=== PATIENT | female | born 1950 | race Caucasian/White ===

== ENCOUNTER 2017-01-10 08:06 | Outpatient (CLI) | payer SELFPAY ==
[2017-01-10 09:15] LABS: BASOPHILS % (AUTO) 1.2 %; EOSINOPHILS # (AUTO) 0.1 10^3/uL (0.0-0.7); EOSINOPHILS % (AUTO) 2.9 %; HCT - HEMATOCRIT 42.4 % (37.0-47.0); HGB - HEMOGLOBIN 14.3 g/dL (12.0-16.0); LYMPHOCYTES # (AUTO) 1.5 10^3/uL (1.5-3.5); LYMPHOCYTES % (AUTO) 37.4 %; MEAN CORPUSCULAR HEMOGLOBIN 28.7 pg (27.0-31.0); MEAN CORPUSCULAR HGB CONC 33.6 g/dL (32.0-36.0); MEAN CORPUSCULAR VOLUME 85.3 fL (81.0-99.0); MEAN PLATELET VOLUME 6.7 fL (7.9-10.8); MONOCYTES # (AUTO) 0.3 10^3/uL (0.0-1.0); MONOCYTES % (AUTO) 7.4 %; NEUTROPHILS # (AUTO) 2.1 10^3/uL (1.5-6.6); NEUTROPHILS % (AUTO) 51.1 %; NUCLEATED RED BLOOD CELLS AUTO 0.1 /100WBC; RED BLOOD COUNT 4.98 10^6/uL (4.20-5.40); RED CELL DISTRIBUTION WIDTH 12.8 % (12.0-15.0); UNCORRECTED WHITE BLOOD COUNT 4.1 x10^3/uL; WHITE BLOOD COUNT 4.1 x10^3/uL (4.8-10.8)
[2017-01-10 09:25] LABS: ALBUMIN/GLOBULIN RATIO 1.4 (1.0-2.2); BILIRUBIN,TOTAL 0.8 mg/dL (0.2-1.0); BUN - BLOOD UREA NITROGEN 15 mg/dL (6-20); CALCIUM 9.3 mg/dL (8.5-10.3); CARBON DIOXIDE - CO2 28 mmol/L (21-32); CHLORIDE 102 mmol/L (101-111); CHOL/HDL RATIO 3.2 (<4.4); CHOLESTEROL 226 mg/dL; CREATININE 0.8 mg/dL (0.4-1.0); GFR - MDRD 72 (>89); GLUCOSE 92 mg/dL (70-100); HDL CHOLESTEROL 71 mg/dL; LDL/HDL RATIO 1.9 (<4.4); POTASSIUM 3.9 mmol/L (3.5-5.0); SODIUM 138 mmol/L (135-145); TOTAL PROTEIN 7.3 g/dL (6.7-8.2); TRIGLYCERIDES 109 mg/dL; VLDL CHOLESTEROL 22 mg/dL
== END 2017-01-10 08:07 | disposition home or self-care (01) ==
LOC: LAB 08:06
PROVIDERS: ATTEND Internal Medicine
DX: E78.5 Hyperlipidemia, unspecified (principal); E55.9 Vitamin D deficiency, unspecified; I10 Essential (primary) hypertension
CPT/HCPCS: 36415; 80053; 80061; 82306; 85025

== ENCOUNTER 2017-05-19 13:56 | Outpatient (CLI) | payer SELFPAY ==
--- NOTE | 2017-05-19 15:34 | Ultrasound Report ---
LEFT BREAST ULTRASOUND: 05/19/2017 CLINICAL INDICATION: Localized pain, possible palpable abnormality. 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 FINDINGS: Ultrasound of the region of pain and possible palpable abnormality identified by the patient was performed. Unremarkable parenchymal lobules are seen. No discrete solid or cystic lesion is appreciated. No sonographically suspicious findings are seen. IMPRESSION: NEGATIVE EXAMINATION. RECOMMENDATION: ROUTINE ANNUAL SCREENING UNLESS OTHERWISE CLINICALLY INDICATED. BIRADS CATEGORY 1-NEGATIVE. TD: 05/19/2017 15:33 MTDD
--- NOTE | 2017-05-19 15:38 | Mammography Report ---
DIGITAL DIAGNOSTIC BILATERAL MAMMOGRAM: 05/19/2017 CLINICAL INDICATION: Left breast pain, possible palpable abnormality. COMPARISON: 07/04/2015, 09/02/2012, 07/10/2010, 01/13/2008, 01/07/2007. TECHNIQUE: Bilateral CC and MLO views, left true lateral view. Markers were placed at the site of maximal tenderness and possible palpable abnormality identified by the patient. FINDINGS: The breasts demonstrate scattered fibroglandular parenchyma bilaterally. Punctate, typically benign calcifications are present. No suspicious masses, clustered microcalcifications, or regions of architectural distortion are identified. Specifically, no mammographic abnormality is appreciated at the site of maximal tenderness and possible palpable abnormality identified by the patient. Please also refer to left breast ultrasound of the same day. IMPRESSION: BENIGN FINDINGS. RECOMMENDATION: ROUTINE ANNUAL SCREENING UNLESS OTHERWISE CLINICALLY INDICATED. BIRADS CATEGORY 2-BENIGN FINDINGS. STANDARD QUALIFYING STATEMENTS: 1. This examination was reviewed with the aid of Computer-Aided Detection (CAD). 2. A negative or benign imaging report should not delay biopsy if clinically suspicious findings are present. Consider surgical consultation if warranted. More than 5% of cancers are not identified by imaging. 3. Dense breasts may obscure an underlying neoplasm. TD: 05/19/2017 15:37
== END 2017-05-19 13:57 | disposition home or self-care (01) ==
LOC: DI 13:56
PROVIDERS: ATTEND Specialist
DX: N64.4 Mastodynia (principal)
CPT/HCPCS: 76642; 77066

== ENCOUNTER 2018-01-16 08:00 | Outpatient (CLI) | payer MEDICARE, OTHER ==
[2018-01-16 12:08] LABS: BASOPHILS % (AUTO) 0.4 %; EOSINOPHILS # (AUTO) 0.1 10^3/uL (0.0-0.7); EOSINOPHILS % (AUTO) 2.8 %; HGB - HEMOGLOBIN 13.7 g/dL (12.0-16.0); LYMPHOCYTES # (AUTO) 1.4 10^3/uL (1.5-3.5); LYMPHOCYTES % (AUTO) 31.9 %; MEAN CORPUSCULAR HEMOGLOBIN 29.2 pg (27.0-31.0); MEAN CORPUSCULAR HGB CONC 34.1 g/dL (32.0-36.0); MEAN CORPUSCULAR VOLUME 85.7 fL (81.0-99.0); MEAN PLATELET VOLUME 6.9 fL (7.9-10.8); MONOCYTES # (AUTO) 0.3 10^3/uL (0.0-1.0); MONOCYTES % (AUTO) 7.4 %; NEUTROPHILS # (AUTO) 2.5 10^3/uL (1.5-6.6); NEUTROPHILS % (AUTO) 57.5 %; PLT - PLATELET COUNT 254 10^3/uL (130-450); RED CELL DISTRIBUTION WIDTH 13.2 % (12.0-15.0); WHITE BLOOD COUNT 4.3 x10^3/uL (4.8-10.8)
[2018-01-16 12:16] LABS: ALBUMIN/GLOBULIN RATIO 1.4 (1.0-2.2); BILIRUBIN,TOTAL 0.8 mg/dL (0.2-1.0); CALCIUM 8.9 mg/dL (8.5-10.3); CREATININE 0.9 mg/dL (0.4-1.0); TOTAL PROTEIN 6.9 g/dL (6.7-8.2)
== END 2018-01-16 08:01 | disposition home or self-care (01) ==
LOC: LAB.R 08:00
PROVIDERS: ATTEND Internal Medicine
DX: R10.32 Left lower quadrant pain (principal)
CPT/HCPCS: 80053; 85025

== ENCOUNTER 2018-01-17 11:49 | Outpatient (CLI) | payer MEDICARE, OTHER ==
[2018-01-17] MEDS ORDERED: IOPAMIDOL-300 100 ML VIAL ONE (11:59)
[2018-01-17] MEDS ORDERED: IOPAMIDOL-300 50 ML VIAL ONE (11:59)
[2018-01-17] MEDS ORDERED: IOPAMIDOL-300 50 ML VIAL PO ONE (14:37)
[2018-01-17] MEDS ORDERED: IOPAMIDOL-300 100 ML VIAL IVP ONE (14:37)
--- NOTE | 2018-01-18 03:40 | CT Report ---
Reason: ABDOMINAL PAIN,LLQ Procedure Date: 01/17/2018 Accession Number: [id number] / [id number] Procedure: CT - Abdomen/Pelvis W/ CPT Code: FULL RESULT: EXAM: CT ABDOMEN AND PELVIS EXAM DATE: 01/17/2018 01:05 PM. CLINICAL HISTORY: Abdominal pain, left lower quadrant. COMPARISONS: None. TECHNIQUE: Routine helical CT imaging was performed through the abdomen and pelvis. IV contrast: ISOVUE 300 100mL. Enteric contrast: Yes. Reconstructions: Coronal and sagittal. In accordance with CT protocol optimization, one or more of the following dose reduction techniques were utilized for this exam: automated exposure control, adjustment of mA and/or KV based on patient size, or use of iterative reconstructive technique. FINDINGS: Lung Bases: Unremarkable. Liver: Unremarkable. No suspicious masses. Gallbladder/Bile Ducts: Unremarkable. Spleen: Unremarkable. Pancreas: Unremarkable. Adrenal Glands: Unremarkable. Kidneys: Malrotated left kidney. No suspicious masses or hydronephrosis. Peritoneal Cavity/Bowel: Large gastric fundal diverticulum. Severe colonic diverticulosis. No bowel obstruction or inflammatory process seen. No free air or significant free fluid. No masses or adenopathy. The appendix is not seen but there is no evidence of appendicitis. No excessive stool burden. Pelvic Organs: Endometrium possibly thickened at 12 mm on image 40 series 6. Internal mass not excluded. No myometrial or adnexal mass seen. Urinary bladder appears unremarkable. Vasculature: No aneurysms or other significant abnormality. Bones: No aggressive appearing or acute abnormality. Grade 1 anterolisthesis of L5 on S1 may be related to degenerative changes. Other: None. IMPRESSION: 1. Severe colonic diverticulosis without definitive diverticulitis seen. 2. No acute inflammatory or obstructive process seen in the abdomen or pelvis. 3. Large gastric fundal diverticulum. 4. Endometrial appears abnormally thickened at up to 12 mm in a postmenopausal patient. Sonographic followup suggested to exclude endometrial mass/polyp. RADIA
== END 2018-01-17 11:50 | disposition home or self-care (01) ==
LOC: DI 11:49
PROVIDERS: ATTEND Internal Medicine
DX: R10.32 Left lower quadrant pain (principal); K57.30 Diverticulosis of large intestine without perforation or abscess without bleeding; K31.4 Gastric diverticulum; R93.89 Abnormal findings on diagnostic imaging of other specified body structures
CPT/HCPCS: 74177; Q9967

== ENCOUNTER 2018-01-21 18:58 | Outpatient (CLI) | payer MEDICARE, OTHER ==
--- NOTE | 2018-01-22 09:42 | Ultrasound Report ---
Reason: ABDOMINAL PAIN,LLQ Procedure Date: 01/21/2018 Accession Number: [id number] / [id number] Procedure: US - Pelvic w/Transvaginal CPT Code: FULL RESULT: EXAM: PELVIC ULTRASOUND EXAM DATE: 01/21/2018 07:07 PM. CLINICAL HISTORY: Left lower quadrant pain. COMPARISON: None. TECHNIQUE: Realtime transabdominal pelvic scan performed to identify the uterus and adnexa and as an overview of other pelvic structures, followed by transvaginal scan to provide greater detail of the uterus and adnexa, with static image documentation. FINDINGS: Uterus: 6.8 x 3.6 x 4.1 cm, volume 51 cc. Retroverted position. Normal overall size and echotexture. Masses: None. Endometrium: 13 mm. Heterogeneous appearance including a few small endometrial cysts measuring up to 8 mm are seen. No abnormal vascularity. Cervix: Unremarkable. Right Ovary: 2.0 x 1.3 x 1.1 cm, volume 1.5 cc. Normal echotexture and blood flow. Left Ovary: 0.9 x 0.6 x 0.3 cm, volume less than 1 cc. Normal echotexture and blood flow. Free Fluid: None. Other: None. IMPRESSION: 1. Thickened and partially cystic-appearing endometrium measuring up to 13 mm. Differential considerations include endometrial hyperplasia versus malignancy. Recommend further evaluation with tissue sampling. 2. Normal postmenopausal-appearing ovaries. RADIA
== END 2018-01-21 18:59 | disposition home or self-care (01) ==
LOC: DI 18:58
PROVIDERS: ATTEND Internal Medicine
DX: R10.32 Left lower quadrant pain (principal); R93.89 Abnormal findings on diagnostic imaging of other specified body structures
CPT/HCPCS: 76830; 76856

== ENCOUNTER 2018-12-24 07:55 | Outpatient (CLI) | payer MEDICARE, OTHER ==
[2018-12-24 08:36] LABS: BASOPHILS # (AUTO) 0.1 10^3/uL (0.0-0.1); BASOPHILS % (AUTO) 1.1 %; EOSINOPHILS # (AUTO) 0.2 10^3/uL (0.0-0.7); EOSINOPHILS % (AUTO) 3.7 %; HGB - HEMOGLOBIN 13.5 g/dL (12.0-16.0); LYMPHOCYTES # (AUTO) 1.7 10^3/uL (1.5-3.5); LYMPHOCYTES % (AUTO) 38.9 %; MEAN CORPUSCULAR HEMOGLOBIN 28.8 pg (27.0-31.0); MEAN CORPUSCULAR HGB CONC 32.8 g/dL (32.0-36.0); MEAN CORPUSCULAR VOLUME 87.8 fL (81.0-99.0); MEAN PLATELET VOLUME 8.3 fL (7.9-10.8); MONOCYTES # (AUTO) 0.4 10^3/uL (0.0-1.0); MONOCYTES % (AUTO) 8.2 %; NEUTROPHILS # (AUTO) 2.1 10^3/uL (1.5-6.6); NEUTROPHILS % (AUTO) 47.4 %; PLT - PLATELET COUNT 220 10^3/uL (130-450); RED BLOOD COUNT 4.68 10^6/uL (4.20-5.40); RED CELL DISTRIBUTION WIDTH 12.5 % (12.0-15.0); WHITE BLOOD COUNT 4.4 x10^3/uL (4.8-10.8)
[2018-12-24 08:41] LABS: ALBUMIN 3.8 g/dL (3.2-5.5); ALBUMIN/GLOBULIN RATIO 1.3 (1.0-2.2); ALKALINE PHOSPHATASE 47 IU/L (42-121); ALT ALANINE AMINOTRANSFERASE 15 IU/L (10-60); AST ASPARTATE AMINOTRANSFERASE 16 IU/L (10-42); BILIRUBIN,TOTAL 0.6 mg/dL (0.2-1.0); BUN - BLOOD UREA NITROGEN 21 mg/dL (6-20); CALCIUM 8.8 mg/dL (8.5-10.3); CARBON DIOXIDE - CO2 29 mmol/L (21-32); CHLORIDE 105 mmol/L (101-111); CHOL/HDL RATIO 3.2 (<4.4); CHOLESTEROL 231 mg/dL; CREATININE 0.8 mg/dL (0.4-1.0); GFR - MDRD 72 (>89); GLUCOSE 92 mg/dL (70-100); HDL CHOLESTEROL 72 mg/dL; LDL CHOLESTEROL,CALCULATED 144 mg/dL; SODIUM 140 mmol/L (135-145); TOTAL PROTEIN 6.8 g/dL (6.7-8.2); VLDL CHOLESTEROL 15 mg/dL
== END 2018-12-24 07:56 | disposition home or self-care (01) ==
LOC: LAB 07:55
PROVIDERS: ATTEND Nurse Practitioner
DX: I10 Essential (primary) hypertension (principal); E78.5 Hyperlipidemia, unspecified; E55.9 Vitamin D deficiency, unspecified; R05 Cough; R53.83 Other fatigue
CPT/HCPCS: 36415; 80053; 80061; 81599; 83721; 84443; 85025; 86480

== ENCOUNTER 2019-03-01 08:17 | Outpatient (CLI) | payer MEDICARE, OTHER ==
[2019-03-01 09:26] VITALS: BP 144/77
--- NOTE | 2019-03-01 09:26 | SLEEP CARE CONSULTATION ---
Information from patient questionnaire entered by Tiki Rob. I have reviewed and concur with the information entered by Tiki Rob. This document represents the service I personally performed and the decisions made by me, Claudette Gamez RN, MSN, BACK SEWER. History of Present Illness Reason for Visit: New patient Accompanied by: Spouse Chief Complaint: reports: Unrefreshed sleep, Snoring, Observed pauses in breathing, Fatigue (sometimes), Frequent awakenings at night Duration of Symptoms: 2-3 years Usual bedtime: [id number] Time it takes to fall asleep: 10-15 minutes Snores at night: Yes Observed to quit breathing while asleep: Yes Sleeps alone due to snoring: No Number of times waking at night: 3 Reasons for waking at night: reports: Bathroom, Other (unknown reasons) Toss, Turn, or Twitch while sleeping: Yes Recalls having dreams: Yes Usually gets out of bed at: [id number] Feels refreshed in the morning: No (sometimes feels refreshed ) Morning headache: Yes (few times a month that seems to be associated with sinus congestion) Sleepy or fatigued during the day: Yes Ever fallen asleep while driving: No Takes day naps: Yes (not every day - generally 15-30 minutes a couple times a week) Dreams during day naps: No Prior sleep studies: No - Parasomnia Symptoms Ever been unable to move upon waking from sleep: No Walks in sleep: No Talks in sleep: No Ever acted out dreams in sleep: No Ever felt weak in the knees when startled or emotional: Yes (rare occasions) Bothered by creepy, crawly, restless sensations in legs: No Problems with memory or concentration: No Subjective Initial [place] Sleepiness Scale score: 12 Past Medical History Past Medical History: reports: Hypertension Social History The patient's occupation is retired. Patient is and lives in [place]. Have you smoked in the past 12 months: No Alcohol use: Yes Alcohol amount and frequency: occasionally with meals or in evenings: glass of wine Caffeine use: Yes Caffeine amount and frequency: 2-3 cups of coffee a day. Family History Family history of sleep disordered breathing: Yes Family Hx Sleep Apnea: Father: Snoring, Sibling: Snoring, Sleep apnea - Treated Allergies and Home Medications Known drug allergies: Yes (tetracycline) Home medication list reviewed: Yes Allergy and home medication list: losartan 25mg daily vitamin 1000 units daily Review of Systems Cardiovascular: reports: high blood pressure Respiratory: reports: other (always feel congested - sinus) Neurological: reports: headaches Ear/Nose/Throat: reports: sinus problems, dry mouth/throat (when she awakens), hoarseness (when awakens ), wisdom teeth removed Musculoskeletal: reports: joint pain (hands ) Physical Exam Blood Pressure: 144/77 Cuff size: regular Heart Rate: 77 O2 Saturation: 98 Height: 5 ft 7 in Weight: 148 lb 3.2 oz Body Mass Index: 23.2 BMI Classification: Healthy weight Neck circumference: 13 HEENT: No craniofacial malformation Nostrils: patent to airflow Turbinates: boggy Septum: midline Mouth and throat: narrow oropharynx Soft palate: long Hard palate: normal Uvula: long Uvula visualization: 25% Mallampati Class III Tongue: normal in size Tonsils: small Chin and jaw: Overjet Neck: normal w/o lymphadenopathy or thyromegaly Heart: regular rate and rhythm Lungs: clear bilaterally Abdomen: soft, non-tender Extremities: no edema or clubbing Neurologic: intact Impression and Plan 1. Suspected Obstructive Sleep Apnea-Hypopnea Syndrome, as suggested by a history of loud and irregular snoring, observed cessation of breath while asleep, frequent awakening during the night, unrefreshed sleep, and excessive daytime sleepiness. Narrow oropharynx and obesity are common predisposing factors for obstructive sleep apnea-hypopnea syndrome. Her overjet can also in crease her risk of apnea. I recommend proceeding to polysomnography to confirm the diagnosis and to assess severity. If the patient has significant sleep disordered breathing, a manual CPAP titration study will also be performed to find the optimal treatment pressure. I informed the patient of what the sleep studies involve and after some discussion, obtained agreement to proceed. The pathophysiology of obstructive sleep apnea-hypopnea syndrome was discussed with the patient and health risks of cardiovascular and cerebrovascular disease if not treated. AASM brochure for obstructive sleep apnea-hypopnea syndrome given and reviewed. Risks of drowsy driving discussed in detail and patient advised to avoid long distance driving and to bleach boiler puller at the first sign of drowsiness. Patient agreed to plan. Patient had several questions about sleep study process, diagnosis and apnea treatment options and follow up that were answered. * Schedule polysomnography +- manual CPAP titration study * Avoid alcohol, sedative and muscle relaxant around bedtime. * Attempt to lose weight. * Review instructions provided by trained office staff on how to prepare for the sleep study. * Return for follow-up after sleep study completed. I spent 100% of this 40 minute visit face to face with the patient with greater than 50% of this was spent time counseling the patient and coordination of care and answering questions about apnea, sleep study and treatment options .
== END 2019-03-01 08:18 | disposition home or self-care (01) ==
LOC: SC 08:17
PROVIDERS: ATTEND Nurse Practitioner Family
DX: G47.10 Hypersomnia, unspecified (principal); R06.81 Apnea, not elsewhere classified; G47.8 Other sleep disorders; R06.83 Snoring
CPT/HCPCS: 99204; G0463; 99212

== ENCOUNTER 2019-03-17 19:36 | Outpatient (CLI) | payer MEDICARE, OTHER | END 2019-03-17 19:37 | disposition home or self-care (01) | LOC: SC 19:36 | PROVIDERS: ATTEND Internal Medicine Pulmonary Disease | DX: G47.33 Obstructive sleep apnea (adult) (pediatric) (principal) | CPT/HCPCS: 95810 ==

== ENCOUNTER 2019-05-04 08:40 | Outpatient (CLI) | payer MEDICARE, OTHER ==
--- NOTE | 2019-05-04 09:37 | SLEEP CARE CONSULTATION ---
Information from patient questionnaire entered by Brittany Paredes. I have reviewed and concur with the information entered by Brittany Paredes. This document represents the service I personally performed and the decisions made by me, Claudette Gamez, RN, MSN, PATTERNMAKER APPRENTICE WOOD. History of Present Illness Accompanied by: Spouse Initial [place] Sleepiness Scale score: 12 Current [place] Sleepiness Scale score: 8 Additional HPI information: QUAN YOUNG returns with spouse for follow up and results of the recently performed polysomnography. I explained the pathophysiology behind obstructive sleep apnea. We then spent quite a bit of time discussing different treatment options. For mild obstructive sleep apnea, surgery and oral appliance are alternatives to nasal CPAP therapy but in moderate or severe cases, nasal CPAP is the most effective and reliable treatment. I reviewed the impact of weight changes on sleep apnea and strongly recommended losing weight. After some discussion, the patient opted to go with the nasal CPAP therapy. I d iscussed having a manual titration study to initiate therapy and find optimal treatment pressure and starting an autoCPAP and follow up process. With further discussion, the patient chose to start nasal autoCPAP set at [id number]. A manual titration study will be ordered if unable to find optimal pressure with office adjustments. I explained how CPAP machine works with sample devices RespireIQ Energys Dreamstation and ResMINDBODY [id number] and what to expect when using the machine. Using CPAP every night in order to get used to it was emphasized. Patient advised to put CPAP mask on before getting into bed so as not to fall asleep without CPAP. To assist acclimation to CPAP use, it could also be used for a short time during day while reading or watching TV. The patient was instructed to call the CPAP supplier to discuss any mechanical problem that may occur. If the mask given is uncomfortable or is difficult to keep on through the night even with adjustment, contact the CPAP supplier as many will replace with another mask style if notified before 30 days. If snoring or perceives is not getting enough air or too much air from the machine, notify this office. AAS patient education PAP tips reviewed and given to patient. Dreamstation CPAP preferred. Patient counseled not drink alcohol less than 4 hours before bedtime as it can increase snoring and apnea. Patient was cautioned about risks of drowsy driving until sleepiness symptoms resolve. Patient denies drowsy driving. AAS patient education on snoring and sleep apnea given and reviewed at last visit . Sleep Study - Results Polysomnography/Home Sleep Study results: The quality of the study is good. The patient had slightly reduced sleep efficiency due to a prolonged awakening in the first half of the study. Despite moderate sleep fragmentation,, the sleep architecture was normal. Respiratory monitoring showed moderate obstructive sleep apnea-hypopnea (AHI = 25.3) associated with frequent arousals, oxyhemoglobin desaturation and mild hypoxia ([place] oxygen saturation of 81%). The respiratory events occurred independently of sleep stage and body position (supine AHI = 34.1; non-supine = 23.86). Snore was loud in intensity. There was no significant periodic leg movement of sleep. Cardiac rhythm was normal sinus rhythm with occasional pr emature ventricular contractions. No abnormal behavior (parasomnia) observed during the night. Allergies and Home Medications Known drug allergies: No Home medication list reviewed: Yes (no changes ) Review of Systems Review of systems same as previous: Yes Physical Exam Blood Pressure: 130/78 Cuff size: regular Heart Rate: 70 O2 Saturation: 98 Height: 5 ft 7 in Weight: 149 lb Weight change since last visit: 1 pound Body Mass Index: 23.3 BMI Classification: Healthy weight Impression and Plan 1. Obstructive Sleep Apnea-Hypopnea Syndrome, moderate , with lowest oxygen saturation of 81%. Obviously this is the cause of the patients symptoms of unrefreshed sleep, and excessive daytime sleepiness. Positive pressure therapy could benefit her hypertension. As mentioned above, the patient will be started on nasal autoCPAP therapy with pressure set at 4-15 cmH2O. A manual titration study will be completed if unable to find optimal treatment pressure with office adjustments. Compliance guidelines also reviewed. A copy of compliance guidelines will be given for reference at check out. Because the apnea is more severe supine, I instructed to avoid sleeping supine using pillow positioning until able to start CPAP use. Patient prefers nasal mask and Dreamstation CPAP which will be placed on her order. 2. Arrhythmia, occasional premature ventricular contractions noted on sleep study. She is advised that if not noted before in her history to follow up with PCP to see if further evaluation as indicated. * Nasal auto CPAP therapy, pressure at 4-15 cm H2O. * Follow up with PCP re arrhythmia as indicated. * Avoid alcohol consumption near bedtime. * Avoid supine sleep until using CPAP. * The patient is again cautioned about driving until sleepiness completely resolves. * Return one month after CPAP obtained. I will assess response to therapy and compliance at that time. Time Spent with Patient (minutes): 37 I spent 100% of this visit face to face with the patient with greater than 50% of this was spent time counseling the patient and coordination of care.
[2019-05-04 09:38] VITALS: BP 130/78
== END 2019-05-04 08:41 ==
LOC: SC 08:40
PROVIDERS: ATTEND Nurse Practitioner Family
DX: G47.33 Obstructive sleep apnea (adult) (pediatric) (principal); I49.9 Cardiac arrhythmia, unspecified
CPT/HCPCS: 99214; G0463; 99212

== ENCOUNTER 2019-09-06 09:20 | Outpatient (CLI) | payer MEDICARE, OTHER ==
[2019-09-06 10:09] VITALS: BP 134/90
--- NOTE | 2019-09-06 10:09 | SLEEP CARE CONSULTATION ---
Information from patient questionnaire entered by Brittany Paredes. I have reviewed and concur with the information entered by Brittany Paredes. This document represents the service I personally performed and the decisions made by me, Claudette Gamez, RN, MSN, PICKING TECH. History of Present Illness Service Date and Time: 09/06/2019919 Previous diagnosis: Moderate, Obstructive Sleep Apnea-Hypopnea Syndrome AHI: 25.3 (in 2019) Reason for follow up: first compliance Equipment type: CPAP Equipment obtained from: [facility] (getting supplies as needed) Mask style: Nasal (Dreamwear nasal mask) Backup mask available: No (keep current mask when replaced) Last cushion change: a week ago / changes every two weeks / cleans daily Prior sleep studies: Yes Year and Where: 2019 - [facility] Type of Sleep Study: Polysomnography CPAP Compliance Data - Data Reviewed with Patient Average duration of nightly device use: 6.5 Compliance rate %: 100 Current pressure setting (cmH2O): 4-15 Humidity settin Heated hose settin Average residual AHI: 8.5 (9.2cmH20 90% average ) Central apnea: 3.4 Obstructive apnea: 0.7 Hypopnea: 4.5 Average large leak: 8 min 50 sec Subjective Patient concerns: reports: aerophagia (once only in the beginning ), air blowing in eyes (3 times a night and wakes to adjust mask /when she is sleeping on her side ), nasal congestion (wakes clear in morning after CPAP and is nasal congestion shortly thereafter), other (wakes to rhythm of breathing - used to very quiet sleep environment). denies: mask discomfort, mask leak noise (not after mask adjustment), condensation in mask/hose, dry mouth, nose, throat, epistaxis Observed to snore while using device: No Current pressure setting perceived as: comfortable On therapy, patient: reports: awakening more refreshed (oocasionally ), being more awake and alert during the day, more rested overall (her increase in energy is intermittent). denies: sleeping better, drowsiness while driving Initial [place] Sleepiness Scale score: 12 (in 2019) Current [place] Sleepiness Scale score: 6 Allergies and Home Medications Home medication list reviewed: No (no changes) Review of Systems Review of systems same as previous: Yes Physical Exam Blood Pressure: 134/90 Cuff size: regular Heart Rate: 72 O2 Saturation: 99 Height: 5 ft 7 in Weight: 153 lb 12.8 oz Body Mass Index: 24.0 BMI Classification: Healthy weight Impression and Plan 1. Obstructive Sleep Apnea-Hypopnea Syndrome, moderate, with good treatment compliance and mild elevation AHI. On CPAP therapy, the patient is intermittently more rested overall. The patients pressure will be changed to autoCPAP 9-12 cmH20 For elevation of residual AHI. Patient advised to contact me if pressure change is uncomfortable so that it can be adjusted. Goals for apnea control discussed. Mask leaks predominately from when patient sleeps on their side can be reduced by using a CPAP pillow. Several styles can be purchased online. To diffuse noise of breathing, a fan or white noise device of some sort can be used . Patient's apnea severity and rationale for treatment to reduce apnea, improve sleep quality and reduce cardiovascular and cerebrovascular events was reviewed. I also reviewed the benefit of consistent device use of CPAP for hypertension. * Changeauto CPAP pressure to 9-15 cmH2O * Notify me if snoring with mask or feeling that the pressure is too much or too little * Consider CPAP pillow * Consider white noise * Call this office if any problems using CPAP * Return for follow up in 1-2 months , or sooner if concerns arise
== END 2019-09-06 09:21 | disposition home or self-care (01) ==
LOC: SC 09:20
PROVIDERS: ATTEND Nurse Practitioner Family
DX: G47.33 Obstructive sleep apnea (adult) (pediatric) (principal)
CPT/HCPCS: 99214; G0463; 99212

== ENCOUNTER 2020-01-10 16:28 | Outpatient (CLI) | payer MEDICARE, OTHER ==
[2020-01-11 11:01] VITALS: BP 130/100
--- NOTE | 2020-01-11 11:01 | SLEEP CARE CONSULTATION ---
Information from patient questionnaire entered by Tiki Rob. I have reviewed and concur with the information entered by Tiki Rob. This document represents the service I personally performed and the decisions made by me, Claudette Gamez, RN, MSN, EXPORT SPECIALIST. History of Present Illness Service Date and Time: 01/10/2020 1628 Previous diagnosis: Moderate, Obstructive Sleep Apnea-Hypopnea Syndrome AHI: 25.3 (in 2019) Reason for follow up: other (2 month with pressure change) Equipment type: CPAP Equipment obtained from: [facility] (g) Mask style: Nasal Backup mask available: No (Keep current mask when replaced as a spare ) Last cushion change: 2 weeks ago Prior sleep studies: Yes Year and Where: 2018 - [facility] Type of Sleep Study: Polysomnography HPI additional information: Patient was unable to tolerate the 8-12 cmH20 pressure ordered for elevated residual AHI of 7.2. She called clinic and the pressure was reduced to [id number] by Chantal GRIFFITH. Since then the pressure has been comfortable. The mask leaks are less on this pressure. She did not get a CPAP pillow but researched. She instead found a different pillow at home that can be molded into a better shape to fit her mask. She continues to take off mask the last part of morning ( 30-45minutes) for cuddle time with spouse and will sometimes doze without her CPAP. Sleep Study - Results Prior sleep studies: Yes Year and Where: 2018 - [facility] CPAP Compliance Data - Data Reviewed with Patient Average duration of nightly device use: 6 hours 25 minutes Compliance rate %: 90 Current pressure setting (cmH2O): 6-10 Humidity settin Heated hose settin Average residual AHI: 6.2 Average large leak: 2 minutes 4 secones Subjective Patient concerns: reports: mask discomfort (headgear straps are uncomfortable around ears and can irritate the), air blowing in eyes, mask leak noise (3 times a week). denies: aerophagia (resolved), condensation in mask/hose, nasal congestion, dry mouth, nose, throat, epistaxis, other Observed to snore while using device: No Current pressure setting perceived as: comfortable On therapy, patient: reports: sleeping better, awakening more refreshed, being more awake and alert during the day, more rested overall. 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 Obstructive Sleep Apnea-Hypopnea Syndrome, moderate, with good treatment compliance and elevated residual AHI. On CPAP therapy, the patient has better sleep quality and is more rested overall. The CPAP pressure was change at her last visit for elevated residual AHI of 7.2 but she was unable to tolerate the pressure so it was reduced to [id number]. There was an internet outage at the time of her visit so the current compliance data could not be viewed. When available, I will review and contact patient with any change in plans. She is also having mask discomfort causing intermittent irritation of skin around ears from headgear of present mask. She likes this style of mask so I showed her other similar styles. She agreed to a mask refitting and an order was written. She is to contact her DME to schedule mask refitting and stop shipment of old mask style. Until then I advised her to place a cloth barrier at site of mask bothering her. Patient's apnea severity and rationale for treatment to reduce apnea, improve sleep quality and reduce cardiovascular and cerebrovascular events was reviewed. I also reviewed the benefit of consistent device use of CPAP for hypertension.I again reviewed the importance of using CPAP with all sleep. In addition, because patient has significant apnea in all positions of sleep, if unable to use CPAP due to illness of lack of electricity, patient advised to raise head of bed 30-40 degrees to decrease some apnea risk. 2. Elevated Blood pressure this visit. The patient was advised to retake at home and contact PCP if elevated above guidelines given by her PCP. 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 * Continue auto CPAP pressure at 6-10 cmH2O * mask refitting * Notify me if snoring with mask or feeling that the pressure is too much or too little * Call this office if any problems using CPAP * Return for follow up in determined by compliance , or sooner if concerns arise * Addendum: 01-10-14 compliance received and shows an elevated residual AHI but at 6.2 now which is lower. Due to discomfort of higher pressure range I will not change the CPAP pressure further. This visit note could not be entered into EMR until internet outage resolved. Her next follow up is 6 months. Visit Type: In Office Time Spent with Patient (minutes): 30 Provider Statement: I spent 100% of the Face to Face Visit with the patient with greater than 50% spent counseling the patient and coordination of care.
== END 2020-01-10 16:29 | disposition home or self-care (01) ==
LOC: SC 16:28
PROVIDERS: ATTEND Nurse Practitioner Family
DX: G47.33 Obstructive sleep apnea (adult) (pediatric) (principal); R03.0 Elevated blood-pressure reading, without diagnosis of hypertension
CPT/HCPCS: 99214; G0463; 99212

== ENCOUNTER 2020-01-14 14:51 | Outpatient (CLI) | payer SELFPAY | END 2020-01-14 14:52 | disposition home or self-care (01) | LOC: COV 14:51 | PROVIDERS: ATTEND Family Medicine | DX: Z20.828 Contact with and (suspected) exposure to other viral communicable diseases (principal) ==

== ENCOUNTER 2020-05-11 06:25 | Day surgery (SDC) | payer MEDICARE, OTHER ==
[2020-05-11] MEDS ORDERED: LACTATED RINGERS 1,000 ML IV ONE ×2 (07:03→08:16)
[2020-05-11] MEDS ORDERED: MIDAZOLAM 2 MG/2 ML VIAL ONE ×3 (07:58→08:14)
[2020-05-11] MEDS ORDERED: fentaNYL 250 MCG/5 ML VIAL ONE (07:58)
[2020-05-11 08:43] VITALS: BP 104/54
== END 2020-05-11 06:26 | disposition home or self-care (01) ==
LOC: SDS 06:25
PROVIDERS: ATTEND Surgery
DX: Z12.11 Encounter for screening for malignant neoplasm of colon (principal); K57.30 Diverticulosis of large intestine without perforation or abscess without bleeding; I10 Essential (primary) hypertension; G47.33 Obstructive sleep apnea (adult) (pediatric); E78.5 Hyperlipidemia, unspecified; E55.9 Vitamin D deficiency, unspecified
CPT/HCPCS: G0121; J3010; J7120

== ENCOUNTER 2020-05-23 08:58 | Outpatient (CLI) | payer MEDICARE, OTHER ==
--- NOTE | 2020-05-23 16:44 | XRAY Report ---
PROCEDURE: Knee 4 View LT INDICATIONS: L KNEE JOINT PX TECHNIQUE: 4 views of the left knee(s) were acquired. COMPARISON: None FINDINGS: Bones: No acute fractures or dislocations. No suspicious bony lesions. Mild-moderate tricompartment al degenerative changes of the left knee. No significant joint space loss on weightbearing views. Soft tissues: No substantial joint effusion. No suspicious soft tissue calcifications. IMPRESSION: Left knee without acute fracture or malalignment. Mild-moderate tricompartmental osteoarthrosis of the left knee. Reviewed by: Julio Guy MD on 05/23/2020 4:42 PM PST Approved by: Julio Guy MD on 05/23/2020 4:42 PM PST Station ID: [id number]
== END 2020-05-23 08:59 | disposition home or self-care (01) ==
LOC: DI.N 08:58
PROVIDERS: ATTEND Family Medicine
DX: M25.562 Pain in left knee (principal); M17.12 Unilateral primary osteoarthritis, left knee

== ENCOUNTER 2020-06-07 14:41 | Outpatient (CLI) | payer MEDICARE, OTHER ==
--- NOTE | 2020-06-07 16:48 | DEXA Report ---
PROCEDURE: Dexa Spine and/or Hip INDICATIONS: POSTMENOPAUSAL TECHNIQUE: Dual energy x-ray absorptiometry (DXA) was performed on a [employer] System. Regions measur ed are the AP Spine, femoral neck, and if needed forearm. COMPARISON: None. FINDINGS: Lumbar Spine: Bone Mineral Density 1.003 g/cm/cm,T score -1.5, mild osteopenia Left Hip: Bone Mineral Density 0.804 g/cm/cm,T score -1.6, mild osteopenia Left Femoral Neck: Bone Mineral Density 0.775 g/cm/cm, T score -1.9, moderate to severe osteopenia (T score greater or equal to -1.0: NORMAL) (T score from -1.1 to -2.4: OSTEOPENIA) (T score less than or equal to -2.5 to: OSTEOPOROSIS) Impression: Osteopenia most severe in the left femoral neck. Patients with diagnosis of osteoporosis or osteopenia should have regular bone mineral density assess ment. For those eligible for Medicare, routine testing is allowed once every 2 years. Testing frequ ency can be increased for patients who have rapidly progressing disease or for those who are receivin g medical therapy to restore bone mass. Reviewed by: Kay Arguello MD on 06/07/2020 4:47 PM PST Approved by: Kay Arguello MD on 06/07/2020 4:47 PM PST Station ID: [id number]
== END 2020-06-07 14:42 | disposition home or self-care (01) ==
LOC: DI 14:41
PROVIDERS: ATTEND Nurse Practitioner
DX: M85.88 Other specified disorders of bone density and structure, other site (principal); Z78.0 Asymptomatic menopausal state

== ENCOUNTER 2020-06-07 14:43 | Outpatient (CLI) | payer MEDICARE, OTHER ==
--- NOTE | 2020-06-08 13:24 | Mammography Report ---
BILATERAL DIGITAL SCREENING MAMMOGRAM 3D/2D: 06/07/2020 CLINICAL: Routine screening. Comparison is made to exams dated: 05/19/2017 mammogram, 05/19/2017 ultrasound, 07/10/2010 mammogram, mammogram, and 07/04/2015 mammogram - [facility]. The tissue of both breasts is predominantly fatty. No significant masses, calcifications, or other findings are seen in either breast. There has been no significant interval change. IMPRESSION: NEGATIVE There is no mammographic evidence of malignancy. A 1 year screening mammogram is recommended. This exam was interpreted at Station ID: [id number]. NOTE: For mammograms, a report in lay terms will be sent to the patient. Approximately 15% of breast malignancies will not be visualized mammographically. In the management of a palpable breast mass, a negative mammogram must not discourage biopsy of a clinically suspicious lesion. Electronically Signed By: Ray Juan M.D., jr/penrad:06/07/2020 15:35:00 ACR BI-RADS Category 1: Negative 3341F PARENCHYMAL PATTERN: (F) - The breast(s) demonstrate(s) diffuse fatty replacement. BI-RADS CATEGORY: (1) - 1 RECOMMENDATION: (ANNUAL) - Recommend routine annual screening mammography. [id number] 1 year screening LATERALITY: (B)
== END 2020-06-07 14:44 | disposition home or self-care (01) ==
LOC: DI 14:43
PROVIDERS: ATTEND Nurse Practitioner
DX: Z12.31 Encounter for screening mammogram for malignant neoplasm of breast (principal)

== ENCOUNTER 2020-08-01 08:20 | Outpatient (CLI) | payer MEDICARE, OTHER ==
--- NOTE | 2020-08-01 08:54 | SLEEP CARE CONSULTATION ---
Information from patient questionnaire entered by Brittany Paredes. I have reviewed and concur with the information entered by Brittany Paredes. This document represents the service I personally performed and the decisions made by , Chantal Kaufman ARNP. History of Present Illness Service Date and Time: 08/01/2020 0820 Previous diagnosis: Moderate, Obstructive Sleep Apnea-Hypopnea Syndrome AHI: 25.3 (in 2019) Reason for follow up: other (6 month) Equipment type: CPAP Equipment obtained from: [facility] (getting supplies as needed) Mask style: Nasal Backup mask available: Yes (old mask) Last cushion change: 2 weeks ago Prior sleep studies: Yes Year and Where: 2019 - [facility] Type of Sleep Study: Polysomnography HPI additional information: QUAN YOUNG was diagnosed to have moderate, AHI 25.3, obstructive sleep apnea-hypopnea syndrome and returned today for CPAP therapy six month follow-up. CPAP Compliance Data - Data Reviewed with Patient Average duration of nightly device use: 6 hr 51 min Compliance rate %: 82.2 (180 days) Current pressure setting (cmH2O): 6-10 (mean 7.4, avg 8.8, peak 10.0) Humidity settin Heated hose settin Average residual AHI: 9.3 Central apnea: 3.5 Obstructive apnea: 0.6 Hypopnea: 5.2 Average large leak: 13 min 26 sec Subjective Missed days of use due to: reports: travel Patient concerns: reports: mask leak noise (improved with adjustment). denies: aerophagia, mask discomfort, air blowing in eyes, condensation in mask/hose, nasal congestion, dry mouth, nose, throat, epistaxis, other Observed to snore while using device: No Current pressure setting perceived as: comfortable On therapy, patient: reports: sleeping better, awakening more refreshed, being more awake and alert during the day, more rested overall. denies: drowsiness while driving Initial [place] Sleepiness Scale score: 12 (in 2019) Current [place] Sleepiness Scale score: 6 Allergies and Home Medications Home medication list reviewed: Yes (Vit D increased, Calcium) Allergy and home medication list: Losartan Review of Systems Review of systems same as previous: Yes (no changes) Physical Exam Heart Rate: 67 O2 Saturation: 100 Height: 5 ft 7 in Weight: 152 lb Body Mass Index: 23.8 BMI Classification: Healthy weight Impression and Plan 1. Obstructive Sleep Apnea-Hypopnea Syndrome, moderate, with good treatment compliance and fair apnea control with mildly elevated residual AHI. On CPAP therapy, the patient has better sleep quality and is more rested overall. She has more energy the next day. Patient has significant improvement of her sleep apnea and is satisfied with current treatment. She states the pressure setting is comfortable and would like to keep it at the 6-10 cmH2O despite the mild elevation. Patient advised to contact me if pressure becomes uncomfortable so that it can be adjusted. Goals for apnea control discussed. Patient voiced understanding. Patient's apnea severity and rationale for treatment to reduce apnea, improve sleep quality and reduce cardiovascular and cerebrovascular events was reviewed. I also reviewed the benefit of consistent device use of CPAP for hypertension. * Continue auto CPAP pressure at 6-10 cmH2O * Notify me if snoring with mask or feeling that the pressure is too much or too little * Maintain healthy weight * Call this office if any problems using CPAP * Return for follow up in 1 year, or sooner if concerns arise Counseling Topics: Spare mask, Weight loss health impact Visit Type: In Office Time Spent with Patient (minutes): 19 Provider Statement: I spent 100% of the Face to Face Visit with the patient with greater than 50% spent counseling the patient and coordination of care.
== END 2020-08-01 08:21 | disposition home or self-care (01) ==
LOC: SC 08:20
PROVIDERS: ATTEND Nurse Practitioner Family
DX: G47.33 Obstructive sleep apnea (adult) (pediatric) (principal)
CPT/HCPCS: 99212; G0463

== ENCOUNTER 2021-06-13 07:12 | Outpatient (CLI) | payer MEDICARE, OTHER ==
[2021-06-13 12:38] LABS: BASOPHILS % (AUTO) 0.9 %; EOSINOPHILS # (AUTO) 0.2 10^3/uL (0.0-0.7); HCT - HEMATOCRIT 42.9 % (37.0-47.0); HGB - HEMOGLOBIN 13.8 g/dL (12.0-16.0); LYMPHOCYTES # (AUTO) 1.6 10^3/uL (1.5-3.5); LYMPHOCYTES % (AUTO) 35.8 %; MEAN CORPUSCULAR HEMOGLOBIN 28.3 pg (27.0-31.0); MEAN CORPUSCULAR HGB CONC 32.2 g/dL (32.0-36.0); MEAN CORPUSCULAR VOLUME 87.9 fL (81.0-99.0); MEAN PLATELET VOLUME 8.7 fL (7.9-10.8); MONOCYTES # (AUTO) 0.4 10^3/uL (0.0-1.0); MONOCYTES % (AUTO) 7.9 %; NEUTROPHILS # (AUTO) 2.3 10^3/uL (1.5-6.6); NEUTROPHILS % (AUTO) 51.2 %; PLT - PLATELET COUNT 236 10^3/uL (130-450); RED BLOOD COUNT 4.88 10^6/uL (4.20-5.40); RED CELL DISTRIBUTION WIDTH 12.8 % (12.0-15.0); WHITE BLOOD COUNT 4.6 x10^3/uL (4.8-10.8)
[2021-06-13 13:27] LABS: THYROID STIMULATING HORMONE 3.91 uIU/mL (0.34-5.60)
[2021-06-13 13:30] LABS: ALBUMIN 4.1 g/dL (3.2-5.5); ALBUMIN/GLOBULIN RATIO 1.4 (1.0-2.2); ALKALINE PHOSPHATASE 44 IU/L (42-121); ALT ALANINE AMINOTRANSFERASE 17 IU/L (10-60); AST ASPARTATE AMINOTRANSFERASE 16 IU/L (10-42); BILIRUBIN,TOTAL 0.6 mg/dL (0.2-1.0); BUN - BLOOD UREA NITROGEN 19 mg/dL (6-20); CARBON DIOXIDE - CO2 28 mmol/L (21-32); CHLORIDE 102 mmol/L (101-111); CHOL/HDL RATIO 3.2 (<4.4); CHOLESTEROL 243 mg/dL; CREATININE 0.8 mg/dL (0.4-1.0); GFR - MDRD 71 (>89); GLUCOSE 101 mg/dL (70-100); HDL CHOLESTEROL 77 mg/dL; LDL CHOLESTEROL,CALCULATED 146 mg/dL; LDL/HDL RATIO 1.9 (<4.4); POTASSIUM 3.9 mmol/L (3.5-5.0); SODIUM 140 mmol/L (135-145); TOTAL PROTEIN 7.1 g/dL (6.7-8.2); TRIGLYCERIDES 100 mg/dL; VLDL CHOLESTEROL 20 mg/dL
== END 2021-06-13 07:13 | disposition home or self-care (01) ==
LOC: LAB.N 07:12
PROVIDERS: ATTEND Nurse Practitioner Family
DX: I10 Essential (primary) hypertension (principal); E78.5 Hyperlipidemia, unspecified
CPT/HCPCS: 36415; 80053; 80061; 83721; 84443; 85025

== ENCOUNTER 2022-02-26 08:23 | Outpatient (CLI) | payer MEDICARE, OTHER ==
[2022-02-26 09:01] VITALS: BP 130/82
--- NOTE | 2022-02-26 09:01 | SLEEP CARE CONSULTATION ---
Information from patient questionnaire entered by Ginette Glez. I have reviewed and concur with the information entered by Ginette Glez. This document represents the service I personally performed and the decisions made by me, Chantal Kaufman ARNP. History of Present Illness Service Date and Time: 02/26/2022 08 Previous diagnosis: Moderate, Obstructive Sleep Apnea-Hypopnea Syndrome AHI: 25.3 (in 2018) Reason for follow up: annual (LAST SEEN 07/2020) Equipment type: CPAP (DREAMSTATION, refurbished) Equipment obtained from: Other ([facility]; getting supplies) Mask style: Nasal Backup mask available: Yes (old mask) Last cushion change: 2 weeks Prior sleep studies: Yes Year and Where: 2018 - [email or web address] Type of Sleep Study: Polysomnography HPI additional information: QUAN YOUNG was diagnosed to have moderate, AHI 25.3, obstructive sleep apnea-hypopnea syndrome and returned today for CPAP therapy annual follow-up. Sleep Study - Results Type of Sleep Study: Polysomnography Prior sleep studies: Yes Year and Where: 2018 - [email or web address] CPAP Compliance Data Compliance data discussion: She has not been able to use her CPAP due to the Radha recall on her Dreamstation. In December, she received a replacement part to fix her device and started using it. She did not bring in her SD card, unable to get current data today. She will bring in to office. Subjective Missed days of use due to: reports: travel, other (recall, just received new parts for machine in December) Patient concerns: reports: aerophagia (bloating in morning), other (dry eyes, not sure if related). denies: mask discomfort, air blowing in eyes, mask leak noise, condensation in mask/hose, nasal congestion, dry mouth, nose, throat, epistaxis Current pressure setting perceived as: comfortable On therapy, patient: reports: sleeping better, awakening more refreshed, being more awake and alert during the day, more rested overall. denies: drowsiness while driving Initial [place] Sleepiness Scale score: 12 (in 2019) Current [place] Sleepiness Scale score: 4 (02/26/22) Allergies and Home Medications Drug allergies reviewed: Yes (tetracycline (as kid)) Home medication list reviewed: Yes (Rosuvastatin) Review of Systems Review of systems same as previous: Yes (no changes) Physical Exam Vital signs obtained and entered by: GINETTE Morris MA Blood Pressure: 130/82 (LEFT ARM) Cuff size: regular Heart Rate: 77 O2 Saturation: 99 Height: 5 ft 7 in Weight: 152 lb 9.6 oz Body Mass Index: 23.8 BMI Classification: Normal Impression and Plan 1. Obstructive Sleep Apnea-Hypopnea Syndrome, moderate, with unknown treatment compliance and unknown apnea control. On CPAP therapy, the patient has better sleep quality and is more rested overall. Patient received a replacement part for her Dreamstation and started using it again in December. She went on vacation for 2 weeks and did not take it but has been using it otherwise. She did not bring in her SD card and we are unable to access her compliance data. She will bring her SD card by the office later today or this week. I will update her supplies with her DME. Patient's apnea severity and rationale for treatment to reduce apnea, improve sleep quality and reduce cardiovascular and cerebrovascular events was reviewed. I also reviewed the benefit of consistent device use of CPAP for hypertension. * Continue auto CPAP pressure at 6-10 cmH2O * Update supplies * Notify me if snoring with mask or feeling that the pressure is too much or too little * Call this office if any problems using CPAP * Return for follow up in 1 year, or sooner if concerns arise Counseling Topics: Spare mask Visit Type: In Office Time Spent with Patient (minutes): 20 Provider Statement: I spent 100% of the Face to Face Visit with the patient with greater than 50% spent counseling the patient and coordination of care.
== END 2022-02-26 08:24 | disposition home or self-care (01) ==
LOC: SC 08:23
PROVIDERS: ATTEND Nurse Practitioner Family
DX: G47.33 Obstructive sleep apnea (adult) (pediatric) (principal)
CPT/HCPCS: 99213; G0463; 99212

== ENCOUNTER 2022-08-16 07:02 | Outpatient (CLI) | payer MEDICARE, OTHER ==
[2022-08-16 12:03] LABS: BASOPHILS # (AUTO) 0.1 10^3/uL (0.0-0.1); BASOPHILS % (AUTO) 1.1 %; EOSINOPHILS # (AUTO) 0.2 10^3/uL (0.0-0.7); HCT - HEMATOCRIT 44.2 % (37.0-47.0); HGB - HEMOGLOBIN 14.1 g/dL (12.0-16.0); LYMPHOCYTES # (AUTO) 1.7 10^3/uL (1.5-3.5); LYMPHOCYTES % (AUTO) 38.4 %; MEAN CORPUSCULAR HEMOGLOBIN 28.4 pg (27.0-31.0); MEAN CORPUSCULAR HGB CONC 31.9 g/dL (32.0-36.0); MEAN CORPUSCULAR VOLUME 88.9 fL (81.0-99.0); MONOCYTES # (AUTO) 0.3 10^3/uL (0.0-1.0); MONOCYTES % (AUTO) 7.6 %; NEUTROPHILS # (AUTO) 2.2 10^3/uL (1.5-6.6); NEUTROPHILS % (AUTO) 48.9 %; PLT - PLATELET COUNT 242 10^3/uL (130-450); RED BLOOD COUNT 4.97 10^6/uL (4.20-5.40); RED CELL DISTRIBUTION WIDTH 12.5 % (12.0-15.0); WHITE BLOOD COUNT 4.5 x10^3/uL (4.8-10.8)
[2022-08-16 12:30] LABS: ALBUMIN 4.2 g/dL (3.2-5.5); ALBUMIN/GLOBULIN RATIO 1.3 (1.0-2.2); ALKALINE PHOSPHATASE 43 IU/L (42-121); ALT ALANINE AMINOTRANSFERASE 18 IU/L (10-60); AMYLASE 93 U/L (28-100); AST ASPARTATE AMINOTRANSFERASE 19 IU/L (10-42); BILIRUBIN,TOTAL 0.8 mg/dL (0.2-1.0); BUN - BLOOD UREA NITROGEN 20 mg/dL (6-20); CALCIUM 9.1 mg/dL (8.5-10.3); CARBON DIOXIDE - CO2 27 mmol/L (21-32); CHLORIDE 101 mmol/L (101-111); CHOL/HDL RATIO 1.9 (<4.4); CHOLESTEROL 172 mg/dL; CREATININE 0.8 mg/dL (0.4-1.0); GFR - MDRD 71 (>89); GLUCOSE 96 mg/dL (70-100); HDL CHOLESTEROL 89 mg/dL; LDL CHOLESTEROL,CALCULATED 75 mg/dL; LDL/HDL RATIO 0.8 (<4.4); LIPASE 36 U/L (22-51); POTASSIUM 4.3 mmol/L (3.5-5.0); SODIUM 138 mmol/L (135-145); TOTAL PROTEIN 7.5 g/dL (6.7-8.2); TRIGLYCERIDES 42 mg/dL; VLDL CHOLESTEROL 8 mg/dL
== END 2022-08-16 07:03 | disposition home or self-care (01) ==
LOC: LAB.N 07:02
PROVIDERS: ATTEND Nurse Practitioner Family
DX: E78.5 Hyperlipidemia, unspecified (principal); R10.13 Epigastric pain
CPT/HCPCS: 36415; 80053; 80061; 82150; 83690; 83721; 85025

== ENCOUNTER 2022-08-29 07:02 | Outpatient (CLI) | payer MEDICARE, OTHER ==
--- NOTE | 2022-08-29 12:20 | Ultrasound Report ---
PROCEDURE: Abdomen Complete INDICATIONS: ABD PAIN TECHNIQUE: Real-time scanning was performed of the abdominal and retroperitoneal organs, with image documentatio n. COMPARISON: CT abdomen pelvis 01/17/2018. FINDINGS: Liver: Liver is normal in size and homogeneous in echotexture. Gallbladder: Unremarkable. Biliary ducts: Intrahepatic bile ducts are non-dilated. Extrahepatic bile duct caliber measures 4 m m. Normal is 6-7 mm or less in diameter, or 10 mm or less post-cholecystectomy. Pancreas: Visualized portions of the pancreas are sonographically normal. Spleen: Spleen is normal in size and homogeneous in echotexture. Kidneys: Right kidney measures 9.7 cm long; left kidney measures 12.1 cm long. No hydronephrosis or nephrolithiasis. No solid masses. No complex renal cystic lesions which require follow-up. Aorta: Visualized aorta is normal in caliber at less than 3 cm. Iliacs: Proximal common iliac arteries are normal in caliber at less than 2.5 cm. IVC: Intrahepatic inferior vena cava is patent. Miscellaneous: No free abdominal fluid. IMPRESSION: No cholelithiasis or evidence of acute cholecystitis. Reviewed by: Rc Kurtz MD on 08/29/2022 12:19 PM PDT Approved by: Rc Kurtz MD on 08/29/2022 12:19 PM PDT Station ID: [id number]
== END 2022-08-29 07:03 | disposition home or self-care (01) ==
LOC: DI 07:02
PROVIDERS: ATTEND Nurse Practitioner Family
DX: R10.10 Upper abdominal pain, unspecified (principal)

== ENCOUNTER 2023-03-20 15:55 | Outpatient (CLI) | payer MEDICARE, OTHER ==
--- NOTE | 2023-03-20 16:29 | Sleep Patient Instructions ---
Sleep Center Visit Summary - Patient Visit Information Reason for Visit: Annual Visit - Patient Instructions Additional Instructions: You will continue with CPAP therapy with pressure set at 6-10 cmH2O. A supply prescription will be updated with your DME. We encourage you to continue to try to lose weight. Please follow up with the sleep care office in 1 year. - Clinic Information Contact: [facility] [address] [place] [address] [email or web address] T: [phone]
--- NOTE | 2023-03-20 16:40 | SLEEP CARE CONSULTATION ---
Information from patient questionnaire entered by Ginette Glez. I have reviewed and concur with the information entered by Ginette Glez. This document represents the service I personally performed and the decisions made by me, Chantal Kaufman ARNP. History of Present Illness Service Date and Time: 03/20/2023 1555 Previous diagnosis: Moderate, Obstructive Sleep Apnea-Hypopnea Syndrome AHI: 25.3 (in 2018) Reason for follow up: annual (LAST SEEN 01/2022) Equipment type: CPAP (DREAMSTATION, refurbished NEED MACHINE) Equipment obtained from: Other ([facility]; getting supplies) Mask style: Nasal Backup mask available: Yes (old mask) Last cushion change: 4-5 weeks Prior sleep studies: Yes Year and Where: 2018 - [facility] Type of Sleep Study: Polysomnography HPI additional information: ELY YOUNG was diagnosed to have moderate, AHI 25.3, obstructive sleep apnea-hypopnea syndrome and returned today for CPAP therapy annual follow-up. Sleep Study - Results Type of Sleep Study: Polysomnography Prior sleep studies: Yes Year and Where: 2018 - [facility] CPAP Compliance Data - Data Reviewed with Patient Average duration of nightly device use: 5 hours 53 minutes Compliance rate %: 51 (204/365 days used) Current pressure setting (cmH2O): 6-10 Average residual AHI: 6.2 Central apnea: 1.8 Obstructive apnea: 0.5 Hypopnea: 3.9 Average large leak: 6 minutes 15 secs Subjective Missed days of use due to: reports: illness, travel Patient concerns: reports: aerophagia (occasional), dry mouth, nose, throat. denies: mask discomfort, air blowing in eyes, mask leak noise, condensation in mask/hose, nasal congestion, epistaxis Observed to snore while using device: No Current pressure setting perceived as: comfortable On therapy, patient: reports: sleeping better, awakening more refreshed, being more awake and alert during the day, more rested overall. denies: drowsiness wh ile driving Initial [place] Sleepiness Scale score: 12 (in 2018) Current [place] Sleepiness Scale score: 5 (03/20/23) Allergies and Home Medications Known drug allergies: Yes (as listed) Drug allergies reviewed: Yes Home medication list reviewed: Yes (Losartan increased from 50 to 100 mg) Allergy and home medication list: Allergies tetracycline Allergy (Verified 03/19/23 11:42) Review of Systems Review of systems same as previous: Yes (NO CHANGE) Physical Exam Vital signs obtained and entered by: GINETTE Morris MA Blood Pressure: 141/80 (LEFT ARM) Cuff size: regular Heart Rate: 75 O2 Saturation: 98 Height: 5 ft 7 in Weight: 145 lb 6.4 oz Body Mass Index: 22.7 BMI Classification: Normal Impression and Plan 1. Obstructive Sleep Apnea-Hypopnea Syndrome, moderate, with fair treatment compliance and fair apnea control. On CPAP therapy, the patient has better sleep quality and is more rested overall. Ely's compliance is reduced because she does travel a lot to locations that she cannot get distilled water or plug in her device. She does not normally take her CPAP when she is traveling. She a lso had a really bad chest cold which limited her use of her CPAP for about 6 weeks in the last few months. Compliance guidelines reviewed for insurance coverage. She voiced understanding. Patient states she occasionally gets aerophagia but otherwise feels the pressure is comfortable at current setting. Her residual AHI is mildly elevated but she feels she is getting good sleep and having less aerophasia with current pressure settings. I will make no changes today and follow-up with her next year. Patient has significant improvement of their sleep apnea and is satisfied with current CPAP therapy. Patient denies problems with oral dryness, nasal congestion, epistaxis, skin irritation or aerophagia. Patient's apnea severity and rationale for treatment to reduce apnea, improve sleep quality and reduce cardiovascular and cerebrovascular events was reviewed. I also reviewed the benefit of consistent device use of CPAP for hypertension. * Continue auto CPAP pressure at 6-10 cmH2O * Update supply prescription * Notify me if snoring with mask or feeling that the pressure is too much or too little * Call this office if any problems using CPAP * Return for follow up in 12 months, or sooner if concerns arise Counseling Topics: Spare mask, Weight loss health impact Prescriptions: Device supplies Follow up with Sleep Care in: 1 year Visit Type: In Office Time Spent with Patient (minutes): 23 Provider Statement: I spent 100% of the Face to Face Visit with the patient with greater than 50% spent counseling the patient and coordination of care.
[2023-03-20 16:59] VITALS: BP 141/80; O2SAT 98
== END 2023-03-20 15:56 | disposition home or self-care (01) ==
LOC: SC 15:55
PROVIDERS: ATTEND Nurse Practitioner Family
DX: G47.33 Obstructive sleep apnea (adult) (pediatric) (principal)
CPT/HCPCS: 99212; G0463

== ENCOUNTER 2023-10-17 07:50 | Outpatient (CLI) | payer MEDICARE, OTHER ==
[2023-10-17 12:20] LABS: BASOPHILS % (AUTO) 0.9 %; EOSINOPHILS # (AUTO) 0.1 10^3/uL (0.0-0.7); EOSINOPHILS % (AUTO) 2.6 %; HCT - HEMATOCRIT 41.5 % (37.0-47.0); HGB - HEMOGLOBIN 13.4 g/dL (12.0-16.0); LYMPHOCYTES # (AUTO) 1.6 10^3/uL (1.5-3.5); LYMPHOCYTES % (AUTO) 33.8 %; MEAN CORPUSCULAR HEMOGLOBIN 29.2 pg (27.0-31.0); MEAN CORPUSCULAR HGB CONC 32.3 g/dL (32.0-36.0); MEAN CORPUSCULAR VOLUME 90.4 fL (81.0-99.0); MEAN PLATELET VOLUME 8.7 fL (7.9-10.8); MONOCYTES # (AUTO) 0.4 10^3/uL (0.0-1.0); MONOCYTES % (AUTO) 8.6 %; NEUTROPHILS # (AUTO) 2.5 10^3/uL (1.5-6.6); NEUTROPHILS % (AUTO) 53.9 %; PLT - PLATELET COUNT 245 10^3/uL (130-450); RED BLOOD COUNT 4.59 10^6/uL (4.20-5.40); RED CELL DISTRIBUTION WIDTH 12.5 % (12.0-15.0); WHITE BLOOD COUNT 4.6 x10^3/uL (4.8-10.8)
[2023-10-17 12:43] LABS: ALBUMIN 4.3 g/dL (3.2-5.5); ALBUMIN/GLOBULIN RATIO 1.6 (1.0-2.2); ALKALINE PHOSPHATASE 43 IU/L (42-121); ALT ALANINE AMINOTRANSFERASE 11 IU/L (10-60); AST ASPARTATE AMINOTRANSFERASE 15 IU/L (10-42); BILIRUBIN,TOTAL 0.6 mg/dL (0.2-1.0); BUN - BLOOD UREA NITROGEN 19 mg/dL (6-20); CALCIUM 9.7 mg/dL (8.5-10.3); CARBON DIOXIDE - CO2 28 mmol/L (21-32); CHLORIDE 104 mmol/L (101-111); CHOL/HDL RATIO 1.9 (<4.4); CHOLESTEROL 151 mg/dL; CREATININE 0.8 mg/dL (0.6-1.3); GFR - MDRD 71 (>89); GLUCOSE 103 mg/dL (74-104); HDL CHOLESTEROL 81 mg/dL; LDL CHOLESTEROL,CALCULATED 60 mg/dL; LDL/HDL RATIO 0.7 (<4.4); POTASSIUM 4.2 mmol/L (3.5-4.5); SODIUM 138 mmol/L (135-145); TRIGLYCERIDES 52 mg/dL; VLDL CHOLESTEROL 10 mg/dL
[2023-10-17 12:51] LABS: THYROID STIMULATING HORMONE 1.93 uIU/mL (0.34-5.60)
== END 2023-10-17 07:51 | disposition home or self-care (01) ==
LOC: LAB.N 07:50
PROVIDERS: ATTEND Nurse Practitioner Family
DX: I10 Essential (primary) hypertension (principal); Z02.89 Encounter for other administrative examinations; E78.5 Hyperlipidemia, unspecified
CPT/HCPCS: 36415; 80053; 80061; 83721; 84443; 85025

== ENCOUNTER 2023-11-17 12:44 | Outpatient (CLI) | payer MEDICARE, OTHER ==
--- NOTE | 2023-11-18 07:44 | Mammography Report ---
BILATERAL DIGITAL SCREENING MAMMOGRAM 3D/2D: 11/17/2023 CLINICAL: Routine screening. Comparison is made to exams dated: 06/07/2020 mammogram, 05/19/2017 mammogram, and 07/04/2015 mammogram - [facility]. There are scattered areas of fibroglandular density in both breasts (category b / 25%-50% glandular t issue). No significant masses, calcifications, or other findings are seen in either breast. There has been no significant interval change. IMPRESSION: NEGATIVE There is no mammographic evidence of malignancy. A 1 year screening mammogram is recommended. Based on the Tyrer Cuzick model (a risk assessment model) the patient's lifetime risk is 4.5% and her 10 year risk is 2.8%. According to the ACR, ACS, and NCCN guidelines, an annual breast MRI exam dee g with mammogram is recommended if the patient's lifetime risk is 20% or greater. This exam was interpreted at Station ID: [id number]. NOTE: For mammograms, a report in lay terms will be sent to the patient. Approximately 15% of breast malignancies will not be visualized mammographically. In the management of a palpable breast mass, a negative mammogram must not discourage biopsy of a clinically suspicious lesion. Electronically Signed By: Fernando [email or web address]:11/17/2023 15:14:14 letter sent: No_Letter ACR BI-RADS Category 1: Negative 3341F PARENCHYMAL PATTERN: (A) - The breast(s) demonstrate(s) scattered fibroglandular densities. BI-RADS CATEGORY: (1) - 1 RECOMMENDATION: (ANNUAL) - Recommend routine annual screening mammography. [id number] 1 year screening LATERALITY: (B)
== END 2023-11-17 12:45 | disposition home or self-care (01) ==
LOC: DI 12:44
DX: Z12.31 Encounter for screening mammogram for malignant neoplasm of breast (principal)

== ENCOUNTER 2023-12-24 08:12 | Outpatient (CLI) | payer MEDICARE, OTHER ==
--- NOTE | 2023-12-24 17:00 | DEXA Report ---
PROCEDURE: Dexa Spine and/or Hip INDICATIONS: POST MENOPAUSAL TECHNIQUE: Dual energy x-ray absorptiometry (DXA) was performed on a [employer] System. Regions measur ed are the AP Spine, femoral neck, and if needed forearm. COMPARISON: 06/07/2020 FINDINGS: Lumbar Spine: Bone Mineral Density: 1.03 g/cm/cm,T score: -1.2. Previously -1.5 Left Femoral Neck: Bone Mineral Density: 0.77 g/cm/cm, T score: -1.9. Left Hip: Bone Mineral Density: 0.78 g/cm/cm,T score: -1.8, previously -1.6. FRAX risk factors: None given. 10 year risk of major osteoporotic fracture: 11.2% major osteoporotic fracture = hip, clinical vertebral, proximal humerus, distal forearm 10 year risk of hip fracture: 2.3% (T score greater or equal to -1.0: NORMAL) (T score from -1.1 to -2.4: OSTEOPENIA) (T score less than or equal to -2.5 to: OSTEOPOROSIS) Impression: By WHO criteria, this patient has osteopenia. Fracture risk percentages as above. Patients with diagnosis of osteoporosis or osteopenia should have regular bone mineral density asses sment. For those eligible for Medicare, routine testing is allowed once every 2 years. Testing freq uency can be increased for patients who have rapidly progressing disease or for those who are receivi ng medical therapy to restore bone mass. Reviewed by: Fernando Lainez MD on 12/24/2023 4:58 PM PDT Approved by: Fernando Lainez MD on 12/24/2023 4:58 PM PDT Station ID: [id number]
== END 2023-12-24 08:13 | disposition home or self-care (01) ==
LOC: DI 08:12
PROVIDERS: ATTEND Nurse Practitioner Family
DX: M85.89 Other specified disorders of bone density and structure, multiple sites (principal); Z78.0 Asymptomatic menopausal state